=== PATIENT | male | born 1980 | race Caucasian/White ===

== ENCOUNTER 2017-03-21 19:23 | Emergency (ER) | payer OTHER ==
[~2017-03-21] VITALS: Ht 180.3 cm; Wt 65.0 kg
[2017-03-21 19:23] VITALS: BP 115/83
[2017-03-21] MEDS ORDERED: BENA25TA9 PO (19:42)
[2017-03-21] MEDS ORDERED: dayquil (19:42)
[2017-03-21] MEDS ORDERED: IBUP600T26 PO (21:19)
[2017-03-21] MEDS ORDERED: AMOX500C PO (21:19)
[2017-03-21] MEDS ORDERED: AMOXICILLIN 500 MG CAP PO ONE (21:30)
[2017-03-21] MEDS ORDERED: ACETAMINOPHEN TAB 650MG DOSE (2X325MG) PO ONE (21:30)
== END 2017-03-21 21:30 | disposition home or self-care (01) ==
LOC: M ED 20:55
DX: H66.90 Otitis media, unspecified, unspecified ear (principal)

== ENCOUNTER 2018-12-04 04:01 | Inpatient (IN) | payer OTHER ==
[~2018-12-04] VITALS: Ht 180.3 cm; Wt 59.6 kg
[~2018-12-04 04:01] MED LIST: AMOX500C PO; BENA25TA10 PO; IBUP-1022 PO; dayquil
[2018-12-04] MEDS ORDERED: TRAZ-160 PO (04:32)
[2018-12-04] MEDS ORDERED: SERT25TA88 PO (04:32)
[2018-12-04 04:42] LABS: HEMATOCRIT 45.2 % (42.0-52.0); HEMOGLOBIN 15.8 g/dl (13.5-17.5); MEAN CORPUSCULAR HEMOGLOBIN 30.2 pg (27.0-33.0); MEAN CORPUSCULAR VOLUME 86.4 fl (80.0-96.0); PLATELET COUNT, AUTOMATED 176 10^3/uL (150-450); RED BLOOD COUNT 5.23 10^6/uL (4.30-6.10); WHITE BLOOD COUNT 4.9 10^3/uL (4.0-10.0)
[2018-12-04 05:21] LABS: ACETAMINOPHEN LEVEL < 2.0 UG/ML (10.0-30.0); ALBUMIN 4.3 GM/DL (3.2-5.2); ALT/SGPT 26 U/L (12-78); AMPHETAMINES LEVEL URINE NEGATIVE (NEGATIVE); BARBITURATES URINE NEGATIVE (NEGATIVE); BENZODIAZEPINES URINE NEGATIVE (NEGATIVE); BILIRUBIN,DIRECT 0.2 MG/DL (0.0-0.2); BILIRUBIN,TOTAL 0.7 MG/DL (0.2-1.0); BLOOD UREA NITROGEN 11 MG/DL (7-18); CALCIUM LEVEL 8.6 MG/DL (8.5-10.1); CANNABINOIDS URINE NEGATIVE (NEGATIVE); CARBON DIOXIDE LEVEL 27 MEQ/L (21-32); CHLORIDE LEVEL 106 MEQ/L (98-107); COCAINE METABOLITE URINE NEGATIVE (NEGATIVE); CREATININE FOR GFR 0.95 MG/DL (0.70-1.30); ETHYL ALCOHOL (ETHANOL) < 0.003 % (0.000-0.010); GLOMERULAR FILTRATION RATE > 60.0 (>60); GLUCOSE, FASTING 135 MG/DL (70-100); METHADONE URINE NEGATIVE (NEGATIVE); OPIATES URINE NEGATIVE (NEGATIVE); PHENCYCLIDINE URINE NEGATIVE (NEGATIVE); POTASSIUM SERUM 3.4 MEQ/L (3.5-5.1); SALICYLATE LEVEL < 1.7 MG/DL (5.0-30.0); SODIUM LEVEL 142 MEQ/L (136-145); TOTAL PROTEIN 6.9 GM/DL (6.4-8.2)
[2018-12-04] MEDS ORDERED: NICOTINE 21MG/24HR 1 EA TRANSDERMAL TD ONE (06:30)
[2018-12-04] MEDS ORDERED: MOM 30ML SUSPENSION UDC PO PRN (14:30)
[2018-12-04] MEDS ORDERED: MAALOX 30 ML SUSP *UDC PO PRN (14:30)
[2018-12-04] MEDS ORDERED: ACETAMINOPHEN TAB 650MG DOSE (2X325MG) PO PRN (14:30)
[2018-12-04 16:32] VITALS: BP 120/86
[2018-12-05 06:26] VITALS: BP 107/64
--- NOTE | 2018-12-05 09:44 | HPEPDOC ---
[facility] Medical History & Physical Date of Admission Dec 04, 2018 History and Physical PCP: Chandni RICHMONDC ATTENDING: Dr. Rachna Can HPI: 38 yo M admitted to [facility] for unspecified depressive disorder, being medically examined today. No acute medical complaints today. Denies any fevers, chills, weakness, fatigue, PUGA, CP, SOB, cough, palpitations, abdominal pain, N/V/D or changes in bowel or bladder habits. PMHx: Anxiety Depression History of SI PSHX: PRK SOCHX: Resides in: [facility] Marital Status: Kids: 3 Employment: Active duty Tobacco use: Less than one pack per day ETOH: Denies Illicit Drugs: Patient states history of methamphetamine prior to , last used 12-13 years ago IV Drug Use: Denies Tattoos done unprofessionally: Denies FAMHX: Mother: Alive, well Father: Unknown Siblings: 2 brother, one sister Alive, one brother with history of bipolar disorder Children: Alive, well Unexpected deaths due to medical reasons: None. ROS: As noted in HPI, otherwise 11pt ROS of systems reviewed and unremarkable. PE: GEN: 38 yo M, appears stated age. Well-nourished, well developed. No acute distress. Alert and oriented x 3. Avoids eye contact, short responses. HEENT: Normocephalic, atraumatic. Pupils are equal, round, and reactive to light. Extraocular movements are intact. No nystagmus appreciated. Sclera are nonicteric. Conjunctiva without injection. Nose midline. Nasal turbinates without bogginess. EACs both patent BL. TMs both visualized and smith with good cone of light, no bulging or erythema. No facial asymmetry. Moist mucous membranes. Dentition fair. Pharynx pink and moist, no cobblestoning. Neck supple, trachea midline. No lymphadenopathy or thyromegaly appreciated. CHEST: Regular rate and rhythm, +S1, +S2 LUNGS: Clear to auscultation bilaterally. No wheezes, rales, or rhonchi. Breat mark appears symmetric and easy. Patient is speaking in full sentences. No accessory muscle use. ABD: Round, soft, non-tender, non-distended. +Bowel sounds throughout. No rebound or guarding. No costovertebral angle tenderness. EXT: Pulses 2+ bilaterally dorsalis pedis and radial. No lower extremity edema appreciated. SKIN: [place], dry, warm. Capillary refill <2sec. No rashes. NEURO: Alert and oriented x 3. Cranial nerves III-XII are intact. No focal deficits appreciated. EKG: Pending A&P: 38 yo M admitted to [facility] for unspecified depressive disorder 1. Psych. Plan per Psychiatry. Obtain baseline EKG to assure the safety of psychiatric medications as they can prolong the QT interval. 2. Nicotine dependence. Patch available. 3. Hypokalemia. Potassium noted to be 3.4 on admission. Oral intake has improved. Recheck BMP in AM. 4. Follow up with PCP on discharge. 5. History of Substance use. 6. Staff member Ayden present throughout exam. Vital Signs Vital Signs Date Time Temp Pulse Resp B/P (MAP) Pulse Ox O2 Delivery O2 Flow Rate FiO2 12/05/18 06:26 97.4 77 18 107/64 (78) 12/04/18 16:04 100 Room Air Laboratory Data Labs 24H Item Value Date Time White Blood Count 4.9 10^3/uL 12/04/18430 Red Blood Count 5.23 10^6/uL 12/04/18430 Hemoglobin 15.8 g/dl 12/04/18430 Hematocrit 45.2 % 12/04/18430 Mean Corpuscular Volume 86.4 fl 12/04/18430 Mean Corpuscular Hemoglobin 30.2 pg 12/04/18430 Mean Corpuscular Hemoglobin Concent 35.0 g/dl 12/04/18430 Red Cell Distribution Width 11.9 % 12/04/18430 Platelet Count 176 10^3/uL 12/04/18430 Nucleated Red Blood Cells % (auto) 0.0 % 12/04/18430 Sodium Level 142 MEQ/L 12/04/18430 Potassium Level 3.4 MEQ/L L 12/04/18430 Chloride Level 106 MEQ/L 12/04/18430 Carbon Dioxide Level 27 MEQ/L 12/04/18430 Anion Gap 9 MEQ/L 12/04/18430 Blood Urea Nitrogen 11 MG/DL 12/04/18430 Creatinine 0.95 MG/DL 12/04/18430 Glomerular Filtration Rate > 60.0 12/04/18430 Fasting Glucose 135 MG/DL H 12/04/18430 Calcium Level 8.6 MG/DL 12/04/18430 Total Bilirubin 0.7 MG/DL 12/04/18430 Direct Bilirubin 0.2 MG/DL 12/04/18430 Aspartate Amino Transf (AST/SGOT) 17 U/L 12/04/18430 Alanine Aminotransferase (ALT/SGPT) 26 U/L 12/04/18430 Alkaline Phosphatase 85 U/L 12/04/18430 Total Protein 6.9 GM/DL 12/04/18430 Albumin 4.3 GM/DL 12/04/18430 Albumin/Globulin Ratio 1.65 12/04/18430 Thyroid Stimulating Hormone (TSH) 2.070 uIU/ML 12/04/18430 Salicylates Level < 1.7 MG/DL L 12/04/18430 Urine Opiates Screen NEGATIVE 12/04/18430 Urine Methadone Screen NEGATIVE 12/04/18430 Acetaminophen Level < 2.0 UG/ML L 12/04/18430 Urine Barbiturates Screen NEGATIVE 12/04/18430 Urine Phencyclidine Screen NEGATIVE 12/04/18430 Urine Amphetamines Screen NEGATIVE 12/04/18430 Urine Benzodiazepines Screen NEGATIVE 12/04/18430 Urine Cocaine Metabolite Screen NEGATIVE 12/04/18430 Urine Cannabinoids Screen NEGATIVE 12/04/18430 Ethyl Alcohol Level < 0.003 % 12/04/18430 Home Medications Scheduled (Sertraline HCl) 25 Mg Tab, 25 MG PO DAILY Trazodone HCl (Trazodone HCl) 50 Mg Tab, 25 MG PO QHS Allergies Coded Allergies: No Known Allergies (Unverified , 03/21/17) Roseline Perez Dec 05, 2018 09:44
[2018-12-05] MEDS: NICOTINE 21MG/24HR 1 EA TRANSDERMAL TD SCH (10:22)
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
[2018-12-05] MEDS ORDERED: diphenhydrAMINE 25 MG CAP PO PRN (13:00)
[2018-12-05] MEDS ORDERED: SERTRALINE HCL 50 MG TAB PO ONE (13:00)
[2018-12-05] MEDS ORDERED: hydrOXYzine 25 MG TAB PO PRN (13:00)
[2018-12-05 18:00] VITALS: BP 113/65
[2018-12-05] MEDS: PRAZOSIN 1 MG CAP PO SCH (21:46)
[2018-12-06 06:09] VITALS: BP 82/56
[2018-12-06] MEDS: NICOTINE 21MG/24HR 1 EA TRANSDERMAL TD SCH (08:39)
[2018-12-06] MEDS: SERTRALINE HCL 50 MG TAB PO SCH (08:39)
[2018-12-06 09:10] LABS: BLOOD UREA NITROGEN 19 MG/DL (7-18); CALCIUM LEVEL 9.2 MG/DL (8.5-10.1); CARBON DIOXIDE LEVEL 32 MEQ/L (21-32); CHLORIDE LEVEL 105 MEQ/L (98-107); CREATININE FOR GFR 1.11 MG/DL (0.70-1.30); GLOMERULAR FILTRATION RATE > 60.0 (>60); GLUCOSE, FASTING 132 MG/DL (70-100); POTASSIUM SERUM 3.9 MEQ/L (3.5-5.1); SODIUM LEVEL 142 MEQ/L (136-145)
--- NOTE | 2018-12-06 14:14 | ECGEPIP ---
Stationary ECG Study [facility] Test Date: 2018-12-05 Pat Name: MARY DANG Department: Room: [place] [address] Gender: M Installment Loan Collector: DYLAN : 1980 Requested By: Roseline Perez Order Number: [id number] Reading MD: Merlin Merrill Measurements Intervals [place] Rate: 53 P: 77 DC: 142 QRS: 97 QRSD: 106 T: 77 QT: 428 QTc: 405 Interpretive Statements SINUS BRADYCARDIA Rightward axis. No prior ECG available for comparison at the time of interpretation. Electronically Signed On 12-06-2018 14:14:29 EST by Merlin Merrill
--- NOTE | 2018-12-06 17:33 | MHIPNPDOC ---
[facility] Progress Note Progress Note DATE OF SERVICE: 12/06/18 HISTORY: Chief Complaint "I'm having thoughts of suicide with a plan to shoot myself in the head." History of Present Illness HISTORY OF THE PRESENT ILLNESS: Patient is a 38 -year-old , AD, male, with no previous psych history who came to ED on his own due to worsening anxiety, depression, SI with plan to shoot himself for the past few weeks. Pt's Spike contacted from the ED and stated pt has been going thru multiple psychosocial stressors includin/2 pay going to child support, current having 4 daughters and unable to leave state due to custody agreement regarding 1, pt going thru reclassification regarding security clearance for a new job with possible station in another state. Pt has been in the 11yrs doing the same job and has a history of 3 combat deployments. He is followed by [facility] stated recently and started taking zoloft 25mg 4days ago. Pt appeared anxious and depressed in the ED. Endorsed PTSD symptoms of hypervigilance, paranoia, insomnia, nightmares, irritability. VITAL SIGNS: See below. NEW TEST RESULTS: See below CURRENT MEDICATIONS: See below. MENTAL STATUS EXAMINATION: General Appearance: well groomed Build: average Demeanor: withdrawn, calm Eye Contact: avoidant Activity: calm, cooperative Behavior: cooperative, restless, withdrawn Speech: clear, normal volume, reg/rate,rhythm,volume, non-spontaneous Mood: depressed, anxious Mood anxious Affect: constricted, flat, congruent, anxious Thought Process: logical/linear, depressed, intact Thought Content (Delusions): none reported, denies SI, HI, AVH Thought Content (Other): guarded, appropriate, other (hypervigilant) Thought Content (Aggressive): none reported Perception (Hallucinations): none reported Perception (Other): none reported Cognition (Impairment of): none reported Cognition(Intelligence Est.): average Oriented: Awake, Alert, Oriented times three Insight: fair Judgment: Fair Psychosis: Denies Diagnoses PTSD depression unspecified ASSESSMENT: The patient is very depressed, has very poor eye contact, his speech is not spontaneous, not fluent, the volume is low, speaks slowly. Admits to have SI, he says he has been considering leaving the [employer], he has been in it for 11 years and he thinks he can do something else that he would enjoy doing. He denies medication side effects. MANAGEMENT PLAN: Diphenhydramine HCl (Benadryl) 25 mg QHSP PRN PO INSOMNIA Hydroxyzine HCl (Atarax) 25 mg Q6HP PRN PO ANXIETY Nicotine (Nicoderm Cq 21mg) 1 patch DAILY TD Prazosin HCl (Minipress) 1 mg QHS PO Sertraline HCl (Zoloft) 50 mg DAILY PO TIME SPENT: 20 minutes. Vital Signs Vital Signs Date Time Temp Pulse Resp B/P (MAP) Pulse Ox O2 Delivery O2 Flow Rate FiO2 12/06/18 06:09 97.2 61 18 82/56 (65) 12/04/18 16:04 100 Room Air Laboratory Data 24H Labs Laboratory Tests 2 12/06/18 08:07: Anion Gap 5L, Glomerular Filtration Rate > 60.0, Blood Urea Nitrogen 19#H, Creatinine 1.11, Sodium Level 142, Potassium Level 3.9, Chloride Level 105, Carbon Dioxide Level 32, Calcium Level 9.2 CBC/BMP Laboratory Tests 12/06/18 08:07 Calcium Level 9.2 Current Medications Current Medications Acetaminophen (Tylenol Tab) 650 mg Q6HP PRN PO HEADACHE or DISCOMFORT; Start 12/04/18 at 14:30 Al Hydrox/Mg Hydrox/Simethicone (Mylanta) 30 ml Q4HP PRN PO HEARTBURN/INDIGESTION; Start 12/04/18 at 14:30 Diphenhydramine HCl (Benadryl) 25 mg QHSP PRN PO INSOMNIA Last administered on 12/05/18at 21:46; Start 12/05/18 at 13:00 Home Med (Med Rec Complete!) ASDIRECTED XX ; Start 12/04/18 at 07:45; Stop 12/04/18 at 07:45; Status DC Hydroxyzine HCl (Atarax) 25 mg Q6HP PRN PO ANXIETY Last administered on 12/06/18at 12:15; Start 12/05/18 at 13:00 Magnesium Hydroxide (Milk Of Magnesia) 30 ml DAILYPRN PRN PO CONSTIPATION; Start 12/04/18 at 14:30 Nicotine (Nicoderm Cq 21mg) 1 patch DAILY TD Last administered on 12/06/18at 08:39; Start 12/05/18 at 09:00 Prazosin HCl (Minipress) 1 mg QHS PO Last administered on 12/05/18at 21:46; Start 12/05/18 at 21:00 Sertraline HCl (Zoloft) 50 mg DAILY PO Last administered on 12/06/18at 08:39; Start 12/06/18 at 09:00 Allergies Coded Allergies: No Known Allergies (Unverified , 03/21/17) DYANA PARK MD Dec 06, 2018 14:22
[2018-12-06 18:00] VITALS: BP 118/77
[2018-12-06] MEDS: PRAZOSIN 1 MG CAP PO SCH (20:42)
[2018-12-07 06:00] VITALS: BP 101/63
[2018-12-07] MEDS: NICOTINE 21MG/24HR 1 EA TRANSDERMAL TD SCH (08:00)
[2018-12-07] MEDS: SERTRALINE HCL 50 MG TAB PO SCH (08:00)
--- NOTE | 2018-12-07 16:39 | MHIPNPDOC ---
[facility] Progress Note Progress Note DATE OF SERVICE: 12/07/18 HISTORY: Chief Complaint "I'm having thoughts of suicide with a plan to shoot myself in the head." History of Present Illness HISTORY OF THE PRESENT ILLNESS: Patient is a 38 -year-old , AD, male, with no previous psych history who came to ED on his own due to worsening anxiety, depression, SI with plan to shoot himself for the past few weeks. Pt's Spike contacted from the ED and stated pt has been going thru multiple psychosocial stressors includin/2 pay going to child support, current having 4 daughters and unable to leave state due to custody agreement regarding 1, pt going thru reclassification regarding security clearance for a new job with possible station in another state. Pt has been in the 11yrs doing the same job and has a history of 3 combat deployments. He is followed by [facility] stated recently and started taking zoloft 25mg 4days ago. Pt appeared anxious and depressed in the ED. Endorsed PTSD symptoms of hypervigilance, paranoia, insomnia, nightmares, irritability. VITAL SIGNS: See below. NEW TEST RESULTS: See below CURRENT MEDICATIONS: See below. MENTAL STATUS EXAMINATION: General Appearance: well groomed Build: average Demeanor: withdrawn, calm Eye Contact: avoidant Activity: calm, cooperative Behavior: cooperative, restless, withdrawn Speech: clear, normal volume, reg/rate,rhythm,volume, non-spontaneous Mood: depressed, anxious Mood depressed Affect: constricted, flat, congruent, anxious Thought Process: logical/linear, depressed, intact Thought Content (Delusions): none reported, denies SI, HI, AVH Thought Content (Other): guarded, appropriate, other (hypervigilant) Thought Content (Aggressive): none reported Perception (Hallucinations): none reported Perception (Other): none reported Cognition (Impairment of): none reported Cognition(Intelligence Est.): average Oriented: Awake, Alert, Oriented times three Insight: fair Judgment: Fair Psychosis: Denies Diagnoses PTSD Major Depressive Disorder ASSESSMENT: He says he had nightmares last night, so, he is wondering if I could change his medications. TW tells him that I will increae prazosin to 3 mgs PO QHS and Zoloft to 75 mgs PO daily. He says that Benadryl is not working and he would prefer to take Trazodone but I explain we could try other alternatives be cause he says he doesn't like Trazodone since it makes "me feel like a brick next morning". TW discuss with him about Remeron and he agrees to start that medication. Will start him on Remeron 30 mgs PO QHS MANAGEMENT PLAN: Remeron 30 mgs PO QHS Hydroxyzine HCl (Atarax) 25 mg Q6HP PRN PO ANXIETY Nicotine (Nicoderm Cq 21mg) 1 patch DAILY TD Prazosin HCl (Minipress) 3 mg QHS PO Sertraline HCl (Zoloft) 75 mg DAILY PO TIME SPENT: 20 minutes. Vital Signs Vital Signs Date Time Temp Pulse Resp B/P (MAP) Pulse Ox O2 Delivery O2 Flow Rate FiO2 12/07/18 06:00 97.8 83 14 101/63 (76) 12/04/18 16:04 100 Room Air Current Medications Current Medications Acetaminophen (Tylenol Tab) 650 mg Q6HP PRN PO HEADACHE or DISCOMFORT; Start 12/04/18 at 14:30 Al Hydrox/Mg Hydrox/Simethicone (Mylanta) 30 ml Q4HP PRN PO HEARTBURN/INDIGESTION; Start 12/04/18 at 14:30 Diphenhydramine HCl (Benadryl) 25 mg QHSP PRN PO INSOMNIA Last administered on 12/05/18at 21:46; Start 12/05/18 at 13:00 Home Med (Med Rec Complete!) ASDIRECTED XX ; Start 12/04/18 at 07:45; Stop 12/04/18 at 07:45; Status DC Hydroxyzine HCl (Atarax) 25 mg Q6HP PRN PO ANXIETY Last administered on 12/06/18at 12:15; Start 12/05/18 at 13:00 Magnesium Hydroxide (Milk Of Magnesia) 30 ml DAILYPRN PRN PO CONSTIPATION; Start 12/04/18 at 14:30 Nicotine (Nicoderm Cq 21mg) 1 patch DAILY TD Last administered on 12/07/18at 08:00; Start 12/05/18 at 09:00 Prazosin HCl (Minipress) 1 mg QHS PO Last administered on 12/06/18at 20:42; Start 12/05/18 at 21:00 Sertraline HCl (Zoloft) 50 mg DAILY PO Last administered on 12/07/18at 08:00; Start 12/06/18 at 09:00 Allergies Coded Allergies: No Known Allergies (Unverified , 03/21/17) DYANA PARK MD Dec 07, 2018 16:39
[2018-12-07 18:09] VITALS: BP 127/75
[2018-12-07] MEDS: PRAZOSIN 1 MG CAP PO SCH (21:23)
[2018-12-08 06:30] VITALS: BP 115/70
[2018-12-08] MEDS ORDERED: SERTRALINE HCL 25 MG TABLET PO SCH (09:00)
[2018-12-08] MEDS: NICOTINE 21MG/24HR 1 EA TRANSDERMAL TD SCH (10:23)
--- NOTE | 2018-12-08 14:14 | MHIPNPDOC ---
[facility] Progress Note Progress Note DATE OF SERVICE: 12/08/18 HISTORY: Chief Complaint "I'm having thoughts of suicide with a plan to shoot myself in the head." History of Present Illness HISTORY OF THE PRESENT ILLNESS: Patient is a 38 -year-old , AD, male, with no previous psych history who came to ED on his own due to worsening anxiety, depression, SI with plan to shoot himself for the past few weeks. Pt's Spike contacted from the ED and stated pt has been going thru multiple psychosocial stressors includin/2 pay going to child support, current having 4 daughters and unable to leave state due to custody agreement regarding 1, pt going thru reclassification regarding security clearance for a new job with possible station in another state. Pt has been in the 11yrs doing the same job and has a history of 3 combat deployments. He is followed by [facility] stated recently and started taking zoloft 25mg 4days ago. Pt appeared anxious and depressed in the ED. Endorsed PTSD symptoms of hypervigilance, paranoia, insomnia, nightmares, irritability. VITAL SIGNS: See below. NEW TEST RESULTS: See below CURRENT MEDICATIONS: See below. MENTAL STATUS EXAMINATION: General Appearance: well groomed, laying in bed, wearing a turtle neck sweater, looking sad, with low energy levels Build: average Demeanor: withdrawn, calm, sad Eye Contact: avoidant Activity: calm,he has psychomotor retardation Behavior: cooperative, indifferent, withdrawn, apathetic Speech: clear, low volume, slow, non-spontaneous, not fluent Mood: depressed, anxious Mood "I feel blah" Affect: constricted, flat, congruent, anxious Thought Process: logical/linear, depressed, intact Thought Content (Delusions): none reported, denies SI, HI, AVH Thought Content (Other): guarded, appropriate, other (hypervigilant) Thought Content (Aggressive): none reported Perception (Hallucinations): none reported Perception (Other): none reported Cognition (Impairment of): none reported Cognition(Intelligence Est.): average Oriented: Awake, Alert, Oriented times three Insight: fair Judgment: Fair Psychosis: Denies Diagnoses PTSD Major Depressive Disorder ASSESSMENT: Patient could not sleep well last night, this rewriter wrote about the changes in his medications in his progress note but forgot to put the order in. He received Benadryl instead. Sertraline has been increased to 100 mgs, he will receive 45 mgs of Remeron at night and will be started on Abilify 2.5 PO BID MANAGEMENT PLAN: Remeron 45 mgs PO QHS Hydroxyzine HCl (Atarax) 25 mg Q6HP PRN PO ANXIETY Nicotine (Nicoderm Cq 21mg) 1 patch DAILY TD Prazosin HCl (Minipress) 3 mg QHS PO Sertraline HCl (Zoloft) 100 mg DAILY PO Abilify 2.5 mgs PO BID TIME SPENT: 20 minutes. Vital Signs Vital Signs Date Time Temp Pulse Resp B/P (MAP) Pulse Ox O2 Delivery O2 Flow Rate FiO2 12/08/18 06:30 98.6 95 16 115/70 (85) 12/04/18 16:04 100 Room Air Current Medications Current Medications Acetaminophen (Tylenol Tab) 650 mg Q6HP PRN PO HEADACHE or DISCOMFORT; Start 12/04/18 at 14:30 Al Hydrox/Mg Hydrox/Simethicone (Mylanta) 30 ml Q4HP PRN PO HEARTBURN/INDIGESTION; Start 12/04/18 at 14:30 Diphenhydramine HCl (Benadryl) 25 mg QHSP PRN PO INSOMNIA Last administered on 12/05/18at 21:46; Start 12/05/18 at 13:00 Home Med (Med Rec Complete!) ASDIRECTED XX ; Start 12/04/18 at 07:45; Stop 12/04/18 at 07:45; Status DC Hydroxyzine HCl (Atarax) 25 mg Q6HP PRN PO ANXIETY Last administered on 12/06/18at 12:15; Start 12/05/18 at 13:00 Magnesium Hydroxide (Milk Of Magnesia) 30 ml DAILYPRN PRN PO CONSTIPATION; Start 12/04/18 at 14:30 Nicotine (Nicoderm Cq 21mg) 1 patch DAILY TD Last administered on 12/08/18at 10:23; Start 12/05/18 at 09:00 Prazosin HCl (Minipress) 1 mg QHS PO Last administered on 12/06/18at 20:42; Start 12/05/18 at 21:00; Stop 12/07/18 at 16:38; Status DC Prazosin HCl (Minipress) 3 mg QHS PO Last administered on 12/07/18at 21:23; Start 12/07/18 at 21:00 Sertraline HCl (Zoloft) 50 mg DAILY PO Last administered on 12/07/18at 08:00; Start 12/06/18 at 09:00; Stop 12/07/18 at 17:00; Status DC Sertraline HCl (Zoloft) 75 mg DAILY PO Last administered on 12/08/18at 10:23; Start 12/08/18 at 09:00 Allergies Coded Allergies: No Known Allergies (Unverified , 03/21/17) DYANA PARK MD Dec 08, 2018 10:53
[2018-12-08 18:07] VITALS: BP 138/88
[2018-12-08 18:09] VITALS: BP 113/77
[2018-12-08] MEDS: MIRTAZAPINE 15 MG TAB PO SCH (22:19)
[2018-12-08] MEDS: PRAZOSIN 1 MG CAP PO SCH (22:21)
[2018-12-09 06:00] VITALS: BP 112/67
[2018-12-09] MEDS ORDERED: SERTRALINE 100 MG TAB PO SCH (09:00)
[2018-12-09] MEDS: NICOTINE 21MG/24HR 1 EA TRANSDERMAL TD SCH (09:02)
--- NOTE | 2018-12-09 16:10 | MHIPNPDOC ---
[facility] Progress Note Progress Note DATE OF SERVICE: 12/09/18 HISTORY: Chief Complaint "I'm having thoughts of suicide with a plan to shoot myself in the head." History of Present Illness HISTORY OF THE PRESENT ILLNESS: Patient is a 38 -year-old , AD, male, with no previous psych history who came to ED on his own due to worsening anxiety, depression, SI with plan to shoot himself for the past few weeks. Pt's Spike contacted from the ED and stated pt has been going thru multiple psychosocial stressors includin/2 pay going to child support, current having 4 daughters and unable to leave state due to custody agreement regarding 1, pt going thru reclassification regarding security clearance for a new job with possible station in another state. Pt has been in the 11yrs doing the same job and has a history of 3 combat deployments. He is followed by [facility] stated recently and started taking zoloft 25mg 4days ago. Pt appeared anxious and depressed in the ED. Endorsed PTSD symptoms of hypervigilance, paranoia, insomnia, nightmares, irritability. VITAL SIGNS: See below. NEW TEST RESULTS: See below CURRENT MEDICATIONS: See below. MENTAL STATUS EXAMINATION: General Appearance: well groomed, laying in bed, wearing a turtle neck sweater, looking sad, with low energy levels Build: average Demeanor: withdrawn, calm, sad Eye Contact: avoidant Activity: calm,he has psychomotor retardation Behavior: cooperative, indifferent, withdrawn, apathetic Speech: clear, low volume, slow, non-spontaneous, not fluent Mood: depressed, anxious Mood "I'm still depressed" Affect: constricted, flat, congruent, anxious Thought Process: logical/linear, depressed, intact Thought Content (Delusions): none reported, denies SI, HI, AVH Thought Content (Other): guarded, appropriate, other (hypervigilant) Thought Content (Aggressive): none reported Perception (Hallucinations): none reported Perception (Other): none reported Cognition (Impairment of): none reported Cognition(Intelligence Est.): average Oriented: Awake, Alert, Oriented times three Insight: fair Judgment: Fair Psychosis: Denies Diagnoses PTSD Major Depressive Disorder ASSESSMENT: His MSE is not very different from yesterday. Patient says he felt dizzy last night when he woke up and went to the bathroom. I explained that is better for him to stand up slowly to avoid this from happening again, but I will discontinue the morning dose of Abilify. he has agreed to go for termination clerk treatment. MANAGEMENT PLAN: Remeron 45 mgs PO QHS Hydroxyzine HCl (Atarax) 25 mg Q6HP PRN PO ANXIETY Nicotine (Nicoderm Cq 21mg) 1 patch DAILY TD Prazosin HCl (Minipress) 3 mg QHS PO Sertraline HCl (Zoloft) 100 mg DAILY PO Abilify 2.5 mgs PO QAM TIME SPENT: 20 minutes. Vital Signs Vital Signs Date Time Temp Pulse Resp B/P (MAP) Pulse Ox O2 Delivery O2 Flow Rate FiO2 12/09/18 06:00 98.6 70 16 112/67 (82) 100 12/04/18 16:04 Room Air Current Medications Current Medications Acetaminophen (Tylenol Tab) 650 mg Q6HP PRN PO HEADACHE or DISCOMFORT; Start 12/04/18 at 14:30 Al Hydrox/Mg Hydrox/Simethicone (Mylanta) 30 ml Q4HP PRN PO HEART BURN/INDIGESTION; Start 12/04/18 at 14:30 Aripiprazole (AbiLIFY) 2.5 mg BID PO Last administered on 12/09/18at 09:03; Start 12/08/18 at 21:00 Diphenhydramine HCl (Benadryl) 25 mg QHSP PRN PO INSOMNIA Last administered on 12/05/18at 21:46; Start 12/05/18 at 13:00 Home Med (Med Rec Complete!) ASDIRECTED XX ; Start 12/04/18 at 07:45; Stop 12/04/18 at 07:45; Status DC Hydroxyzine HCl (Atarax) 25 mg Q6HP PRN PO ANXIETY Last administered on 12/06/18at 12:15; Start 12/05/18 at 13:00 Magnesium Hydroxide (Milk Of Magnesia) 30 ml DAILYPRN PRN PO CONSTIPATION; Start 12/04/18 at 14:30 Mirtazapine (Remeron) 45 mg QHS PO Last administered on 12/08/18at 22:19; Start 12/08/18 at 21:00 Nicotine (Nicoderm Cq 21mg) 1 patch DAILY TD Last administered on 12/09/18 09:02; Start 12/05/18 at 09:00 Prazosin HCl (Minipress) 1 mg QHS PO Last administered on 12/06/18at 20:42; Start 12/05/18 at 21:00; Stop 12/07/18 at 16:38; Status DC Prazosin HCl (Minipress) 3 mg QHS PO Last administered on 12/08/18at 22:21; Start 12/07/18 at 21:00 Sertraline HCl (Zoloft) 50 mg DAILY PO Last administered on 12/07/18at 08:00; Start 12/06/18 at 09:00; Stop 12/07/18 at 17:00; Status DC Sertraline HCl (Zoloft) 75 mg DAILY PO Last administered on 12/08/18at 10:23; Start 12/08/18 at 09:00; Stop 12/08/18 at 14:21; Status DC Sertraline HCl (Zoloft) 100 mg DAILY PO Last administered on 12/09/18 09:02; Start 12/09/18 at 09:00 Allergies Coded Allergies: No Known Allergies (Unverified , 03/21/17) DYANA PARK MD Dec 09, 2018 12:52
[2018-12-09 18:00] VITALS: BP 119/75
[2018-12-09] MEDS: MIRTAZAPINE 15 MG TAB PO SCH (21:37)
[2018-12-09] MEDS: PRAZOSIN 1 MG CAP PO SCH (21:38)
[2018-12-10 06:38] VITALS: BP 130/68
[2018-12-10] MEDS: NICOTINE 21MG/24HR 1 EA TRANSDERMAL TD SCH (08:54)
[2018-12-10] MEDS: SERTRALINE HCL 50 MG TAB PO SCH (08:55)
[2018-12-10 18:14] VITALS: BP 123/72
--- NOTE | 2018-12-10 18:18 | MHIPNPDOC ---
[facility] Progress Note Progress Note DATE OF SERVICE: 12/10/18 HISTORY: Chief Complaint "I'm having thoughts of suicide with a plan to shoot myself in the head." History of Present Illness HISTORY OF THE PRESENT ILLNESS: Patient is a 38 -year-old , AD, male, with no previous psych history who came to ED on his own due to worsening anxiety, depression, SI with plan to shoot himself for the past few weeks. Pt's Spike contacted from the ED and stated pt has been going thru multiple psychosocial stressors includin/2 pay going to child support, current having 4 daughters and unable to leave state due to custody agreement regarding 1, pt going thru reclassification regarding security clearance for a new job with possible station in another state. Pt has been in the 11yrs doing the same job and has a history of 3 combat deployments. He is followed by [facility] stated recently and started taking zoloft 25mg 4days ago. Pt appeared anxious and depressed in the ED. Endorsed PTSD symptoms of hypervigilance, paranoia, insomnia, nightmares, irritability. VITAL SIGNS: See below. NEW TEST RESULTS: See below CURRENT MEDICATIONS: See below. MENTAL STATUS EXAMINATION: General Appearance: well groomed, laying in bed, wearing a turtle neck sweater, looking sad, with low energy levels Build: average Demeanor: withdrawn, calm, sad Eye Contact: avoidant Activity: calm,he has psychomotor retardation Behavior: cooperative, indifferent, withdrawn, apathetic Speech: clear, low volume, slow, non-spontaneous, not fluent Mood: depressed, anxious Mood "I slept better, i still feel depressed, but I'm improving" Affect: constricted, flat, congruent, anxious Thought Process: logical/linear, depressed, intact Thought Content (Delusions): none reported, denies SI, HI, AVH Thought Content (Other): guarded, appropriate, other (hypervigilant) Thought Content (Aggressive): none reported Perception (Hallucinations): none reported Perception (Other): none reported Cognition (Impairment of): none reported Cognition(Intelligence Est.): average Oriented: Awake, Alert, Oriented times three Insight: fair Judgment: Fair Psychosis: Denies Diagnoses PTSD Major Depressive Disorder ASSESSMENT: He reports sleeping well. His appetite is slowly improving. He i still very depressed, his affect continues to be very flat but he denies SI. Ho wever he is at extremely high risk for suicide. We talked about the media strategist treatment and he says he already spoke with his exercise planner about it, he has some information about the place. he agrees to it. MANAGEMENT PLAN: Remeron 45 mgs PO QHS Hydroxyzine HCl (Atarax) 25 mg Q6HP PRN PO ANXIETY Nicotine (Nicoderm Cq 21mg) 1 patch DAILY TD Prazosin HCl (Minipress) 3 mg QHS PO Sertraline HCl (Zoloft) 150 mg DAILY PO Abilify 2.5 mgs PO QAM TIME SPENT: 20 minutes. Vital Signs Vital Signs Date Time Temp Pulse Resp B/P (MAP) Pulse Ox O2 Delivery O2 Flow Rate FiO2 12/10/18 06:38 96.3 62 14 130/68 (88) 12/09/18 06:00 100 12/04/18 16:04 Room Air Current Medications Current Medications Acetaminophen (Tylenol Tab) 650 mg Q6HP PRN PO HEADACHE or DISCOMFORT; Start 12/04/18 at 14:30 Al Hydrox/Mg Hydrox/Simethicone (Mylanta) 30 ml Q4HP PRN PO HEARTBURN/INDIGESTION; Start 12/04/18 at 14:30 Aripiprazole (AbiLIFY) 2.5 mg BID PO Last administered on 12/09/18at 09:03; Start 12/08/18 at 21:00; Stop 12/09/18 at 16:01; Status DC Aripiprazole (AbiLIFY) 2.5 mg QHS PO Last administered on 12/09/18at 21:37; Start 12/09/18 at 21:00 Diphenhydramine HCl (Benadryl) 25 mg QHSP PRN PO INSOMNIA Last administered on 12/05/18at 21:46; Start 12/05/18 at 13:00 Home Med (Med Rec Complete!) ASDIRECTED XX ; Start 12/04/18 at 07:45; Stop 12/04/18 at 07:45; Status DC Hydroxyzine HCl (Atarax) 25 mg Q6HP PRN PO ANXIETY Last administered on 12/06/18at 12:15; Start 12/05/18 at 13:00 Magnesium Hydroxide (Milk Of Magnesia) 30 ml DAILYPRN PRN PO CONSTIPATION; Start 12/04/18 at 14:30 Mirtazapine (Remeron) 45 mg QHS PO Last administered on 12/09/18 21:37; Start 12/08/18 at 21:00 Nicotine (Nicoderm Cq 21mg) 1 patch DAILY TD Last administered on 12/10/18 08:54; Start 12/05/18 at 09:00 Prazosin HCl (Minipress) 1 mg QHS PO Last administered on 12/06/18 20:42; Start 12/05/18 at 21:00; Stop 12/07/18 at 16:38; Status DC Prazosin HCl (Minipress) 3 mg QHS PO Last administered on 12/09/18 21:38; Start 12/07/18 at 21:00 Sertraline HCl (Zoloft) 50 mg DAILY PO Last administered on 12/07/18 08:00; Start 12/06/18 at 09:00; Stop 12/07/18 at 17:00; Status DC Sertraline HCl (Zoloft) 75 mg DAILY PO Last administered on 12/08/18 10:23; Start 12/08/18 at 09:00; Stop 12/08/18 at 14:21; Status DC Sertraline HCl (Zoloft) 100 mg DAILY PO Last administered on 12/09/18 09:02; Start 12/09/18 at 09:00; Stop 12/09/18 at 16:10; Status DC Sertraline HCl (Zoloft) 150 mg DAILY PO Last administered on 12/10/18 08:55; Start 12/10/18 at 09:00 Allergies Coded Allergies: No Known Allergies (Unverified , 03/21/17) DYANA PARK MD Dec 10, 2018 18:18
[2018-12-10] MEDS: MIRTAZAPINE 15 MG TAB PO SCH (21:34)
[2018-12-10] MEDS: PRAZOSIN 1 MG CAP PO SCH (21:35)
[2018-12-11 06:18] VITALS: BP 140/70
[2018-12-11] MEDS: NICOTINE 21MG/24HR 1 EA TRANSDERMAL TD SCH (08:42)
[2018-12-11] MEDS: SERTRALINE HCL 50 MG TAB PO SCH (08:42)
[2018-12-11] MEDS ORDERED: MIRT15TA3 PO (15:48)
[2018-12-11] MEDS ORDERED: HYDR-3363 PO (15:48)
[2018-12-11] MEDS ORDERED: ARIP5TA PO (15:48)
[2018-12-11] MEDS ORDERED: NICO21PAT TD (15:48)
[2018-12-11] MEDS ORDERED: MINI1CAP PO (15:48)
[2018-12-11] MEDS ORDERED: SERT50TA PO (15:48)
[2018-12-11 18:23] VITALS: BP 134/87
--- NOTE | 2018-12-11 20:46 | MHIPNPDOC ---
[facility] Progress Note Progress Note DATE OF SERVICE: 12/11/18 HISTORY: Chief Complaint "I'm having thoughts of suicide with a plan to shoot myself in the head." History of Present Illness HISTORY OF THE PRESENT ILLNESS: Patient is a 38 -year-old , AD, male, with no previous psych history who came to ED on his own due to worsening anxiety, depression, SI with plan to shoot himself for the past few weeks. Pt's Jennifer contacted from the ED and stated pt has been going thru multiple psychosocial stressors includin/2 pay going to child support, current having 4 daughters and unable to leave state due to custody agreement regarding 1, pt going thru reclassification regarding security clearance for a new job with possible station in another state. Pt has been in the 11yrs doing the same job and has a history of 3 combat deployments. He is followed by [facility] stated recently and started taking zoloft 25mg 4days ago. Pt appeared anxious and depressed in the ED. Endorsed PTSD symptoms of hypervigilance, paranoia, insomnia, nightmares, irritability. VITAL SIGNS: See below. NEW TEST RESULTS: See below CURRENT MEDICATIONS: See below. MENTAL STATUS EXAMINATION: General Appearance: well groomed, getting ready to leave the Unit ( he is leaving on a pass today, he has to pack before going to [place] in [place] tomorrow) Build: average Demeanor: withdrawn, calm, sad Eye Contact: avoidant Activity: calm,he has psychomotor retardation Behavior: cooperative, indifferent, withdrawn, apathetic Speech: clear, low volume, slow, non-spontaneous, not fluent Mood: depressed, anxious Mood "I don't have suicidal thoughts, I feel a little bit better" Affect: constricted, flat, congruent, anxious Thought Process: logical/linear, depressed, intact Thought Content (Delusions): none reported, denies SI, HI, AVH Thought Content (Other): guarded, appropriate Thought Content (Aggressive): none reported Perception (Hallucinations): none reported Perception (Other): none reported Cognition (Impairment of): none reported Cognition(Intelligence Est.): average Oriented: Awake, Alert, Oriented times three Insight: fair Judgment: Fair Psychosis: Denies Diagnoses PTSD Major Depressive Disorder ASSESSMENT: Patient is going to [place] tomorrow at 6:30 am. He left on a pass today, he was escorted by an [employer] fellow (JENNIFER). He went home, packed and is supposed to come back to [facility]. He is being picked up tomorrow at 630 am. He seems to be doing a little bit better, he is hopeful that his penitentiary hospitalization in [place] will help him overcome his depression. MANAGEMENT PLAN: Remeron 45 mgs PO QHS Hydroxyzine HCl (Atarax) 25 mg Q6HP PRN PO ANXIETY Nicotine (Nicoderm Cq 21mg) 1 patch DAILY TD Prazosin HCl (Minipress) 3 mg QHS PO Sertraline HCl (Zoloft) 150 mg DAILY PO Abilify 2.5 mgs PO QAM TIME SPENT: 20 minutes. Vital Signs Vital Signs Date Time Temp Pulse Resp B/P (MAP) Pulse Ox O2 Delivery O2 Flow Rate FiO2 12/11/18 06:18 98.0 74 18 140/70 (93) 12/09/18 06:00 100 Current Medications Current Medications Acetaminophen (Tylenol Tab) 650 mg Q6HP PRN PO HEADACHE or DISCOMFORT; Start 12/04/18 at 14:30 Al Hydrox/Mg Hydrox/Simethicone (Mylanta) 30 ml Q4HP PRN PO HEARTBURN/INDIGESTION; Start 12/04/18 at 14:30 Aripiprazole (AbiLIFY) 2.5 mg BID PO Last administered on 12/09/18at 09:03; Start 12/08/18 at 21:00; Stop 12/09/18 at 16:01; Status DC Aripiprazole (AbiLIFY) 2.5 mg QHS PO Last administered on 12/10/18at 21:34; Start 12/09/18 at 21:00 Diphenhydramine HCl (Benadryl) 25 mg QHSP PRN PO INSOMNIA Last administered on 12/05/18at 21:46; Start 12/05/18 at 13:00 Home Med (Med Rec Complete!) ASDIRECTED XX ; Start 12/04/18 at 07:45; Stop 12/04/18 at 07:45; Status DC Hydroxyzine HCl (Atarax) 25 mg Q6HP PRN PO ANXIETY Last administered on 12/06/18at 12:15; Start 12/05/18 at 13:00 Magnesium Hydroxide (Milk Of Magnesia) 30 ml DAILYPRN PRN PO CONSTIPATION; Start 12/04/18 at 14:30 Mirtazapine (Remeron) 45 mg QHS PO Last administered on 12/10/18 21:34; Start 12/08/18 at 21:00 Nicotine (Nicoderm Cq 21mg) 1 patch DAILY TD Last administered on 12/11/18 08:42; Start 12/05/18 at 09:00 Prazosin HCl (Minipress) 1 mg QHS PO Last administered on 12/06/18 20:42; Start 12/05/18 at 21:00; Stop 12/07/18 at 16:38; Status DC Prazosin HCl (Minipress) 3 mg QHS PO Last administered on 12/10/18 21:35; Start 12/07/18 at 21:00 Sertraline HCl (Zoloft) 50 mg DAILY PO Last administered on 12/07/18 08:00; Start 12/06/18 at 09:00; Stop 12/07/18 at 17:00; Status DC Sertraline HCl (Zoloft) 75 mg DAILY PO Last administered on 12/08/18 10:23; Start 12/08/18 at 09:00; Stop 12/08/18 at 14:21; Status DC Sertraline HCl (Zoloft) 100 mg DAILY PO Last administered on 12/09/18 09:02; Start 12/09/18 at 09:00; Stop 12/09/18 at 16:10; Status DC Sertraline HCl (Zoloft) 150 mg DAILY PO Last administered on 12/11/18 08:42; Start 12/10/18 at 09:00 Allergies Coded Allergies: No Known Allergies (Unverified , 03/21/17) DYANA PARK MD Dec 11, 2018 17:35
[2018-12-11 22:23] VITALS: BP 128/76
[2018-12-11] MEDS: MIRTAZAPINE 15 MG TAB PO SCH (22:23)
[2018-12-11] MEDS: PRAZOSIN 1 MG CAP PO SCH (22:23)
[2018-12-12] MEDS: SERTRALINE HCL 50 MG TAB PO SCH (05:59)
--- NOTE | 2018-12-16 21:19 | MHDSPDOC ---
[facility] Discharge Summary Discharge Summary DATE OF ADMISSION: Dec 04, 2018 at 14:27 DATE OF DISCHARGE: Dec 12, 2018 at 06:21 DISCHARGE DIAGNOSES: PTSD Major Depressive Disorder REASON FOR ADMISSION: Chief Complaint "I'm having thoughts of suicide with a plan to shoot myself in the head." History of Present Illness HISTORY OF THE PRESENT ILLNESS: Patient is a 38 -year-old , AD, male, with no previous psych history who came to ED on his own due to worsening anxiety, depression, SI with plan to shoot himself for the past few weeks. Pt's Spike contacted from the ED and stated pt has been going thru multiple psychosocial stressors includin/2 pay going to child support, current having 4 daughters and unable to leave state due to custody agreement regarding 1, pt going thru reclassification regarding security clearance for a new job with possible station in another state. Pt has been in the 11yrs doing the same job and has a history of 3 combat deployments. He is followed by [facility] stated recently and started taking zoloft 25mg 4days ago. Pt appeared anxious and depressed in the ED. Endorsed PTSD symptoms of hypervigilance, paranoia, insomnia, nightmares, irritability. CONSULTANTS INVOLVED: None TREATMENT AND PROGRESS ON THE UNIT : Patient was extremely depressed, he had flat affect, psychomotor retardation, suicidal ideation, poor attention/concentration, guilty feelings, sleep problems, poor appetite. 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 He fulfilled criteria for major depression, anxiety and PTSD. He was started on Abilify (2.5 mgs PO QHS) as an antidepressant booster and his antidepressant (Zoloft)was increased, slowly to 150 mgs po daily, Prazosin 3 mgs PO QHS for nightmares and flashbacks, Mirtazapine 45 mgs. PO QHS for insomnia and Hydroxyzine 25 mgs PO q6h prn for anxiety/agitation. The patient had a good response to medications, he stopped reporting suicidal thoughts but the depression persisted and although he reported improvement of his depression, he was still very depressed and anxious. He needed to go to longer treatment and he was accepted at [facility] in [place]. He was still depressed, his affect was still constricted/flat, he was guarded, his speech was impoverished and had poor eye contact at the time of his discharge. HOSPITAL COURSE: As above DISCHARGE ASSESSMENT: Patient was not suicidal,not homicidal and not psychotic at the time of his discharge but he was still depressed and in need of longer treatment for stabilization MENTAL STATUS EXAMINATION ON DISCHARGE: General Appearance: well groomed, getting ready to leave the Unit ( he is leaving on a pass today, he has to pack before going to [place] in [place] tomorrow) Build: average Demeanor: withdrawn, calm, sad Eye Contact: avoidant Activity: calm,he has psychomotor retardation Behavior: cooperative, indifferent, withdrawn, apathetic Speech: clear, low volume, slow, non-spontaneous, not fluent Mood: depressed, anxious Mood "I don't have suicidal thoughts, I feel a little bit better" Affect: constricted, flat, congruent, anxious Thought Process: logical/linear, depressed, intact Thought Content (Delusions): none reported, denies SI, HI, AVH Thought Content (Other): guarded, appropriate Thought Content (Aggressive): none reported Perception (Hallucinations): none reported Perception (Other): none reported Cognition (Impairment of): none reported Cognition(Intelligence Est.): average Oriented: Awake, Alert, Oriented times three Insight: fair Judgment: Fair Psychosis: Denies MEDICATIONS ON DISCHARGE: Scheduled Aripiprazole (Aripiprazole) 5 Mg Tab, 2.5 MG PO QHS for MOOD, #7 Mirtazapine (Mirtazapine) 15 Mg Tab, 45 MG PO QHS for INSOMNIA, #21 Nicotine (Nicotine Transdermal Syst) 21 Mg/24 Hr Dis, 1 PATCH TD DAILY for NICOTINE WITHDRAWALS, #7 Prazosin HCl (Minipress) 1 Mg Cap, 3 MG PO QHS for NIGHTMARES, #21 Sertraline Hcl (Sertraline HCl) 50 Mg Tab, 150 MG PO DAILY for DEPRESSION, #21 Scheduled PRN Hydroxyzine HCl (Hydroxyzine HCl) 25 Mg Tab, 25 MG PO Q6HP PRN for ANXIETY, #28 PLAN/FOLLOWUP ARRANGEMENTS: * Mental Health Appt 1 * Medical Follow Up [facility] * Additional information Pt to transfer to [facility], no appointments necessary The amount of time spent in the coordination of care for this patient was approximately 30 minutes. Vital Signs/I&Os Vital Signs Date Time Temp Pulse Resp B/P (MAP) Pulse Ox O2 Delivery O2 Flow Rate FiO2 12/11/18 22:23 128/76 12/11/18 18:23 98.3 84 16 Medications Scheduled Aripiprazole (Aripiprazole) 5 Mg Tab, 2.5 MG PO QHS for MOOD, #7 Mirtazapine (Mirtazapine) 15 Mg Tab, 45 MG PO QHS for INSOMNIA, #21 Nicotine (Nicotine Transdermal Syst) 21 Mg/24 Hr Dis, 1 PATCH TD DAILY for NICOTINE WITHDRAWALS, #7 Prazosin HCl (Minipress) 1 Mg Cap, 3 MG PO QHS for NIGHTMARES, #21 Sertraline Hcl (Sertraline HCl) 50 Mg Tab, 150 MG PO DAILY for DEPRESSION, #21 Scheduled PRN Hydroxyzine HCl (Hydroxyzine HCl) 25 Mg Tab, 25 MG PO Q6HP PRN for ANXIETY, #28 Allergies Coded Allergies: No Known Allergies (Unverified , 03/21/17) DYANA PARK MD Dec 16, 2018 21:15
== END 2018-12-12 06:21 | DRG 881 ==
LOC: M ED 04:01 → M ED INP 14:27 → M PSY 16:31
PROVIDERS: ADMIT Psychiatry & Neurology Psychiatry; ATTEND Psychiatry & Neurology Psychiatry
DX: F32.9 Major depressive disorder, single episode, unspecified (principal); R45.851 Suicidal ideations; F43.10 Post-traumatic stress disorder, unspecified; Z79.899 Other long term (current) drug therapy; F17.200 Nicotine dependence, unspecified, uncomplicated; E87.6 Hypokalemia

== ENCOUNTER 2019-05-15 22:37 | Emergency (ER) | payer OTHER ==
[~2019-05-15] VITALS: Ht 180.3 cm; Wt 65.9 kg
[~2019-05-15 22:37] MED LIST changes: +AMBI5TAB PO; +ARIP1TAB6 PO; +DOXE10CA PO; +ESCI10TA2 PO; +HYDR-3363 PO; +LEXA1TAB PO; +MINI1CAP PO; +MIRT15TA3 PO; +MIRT1TAB15 PO; +NICO21DI37 TD; +NICO21PAT TD; +PRAZ2CAP PO; +REME15TA PO; +SERT-141 PO; +SERT25TA88 PO; +TRAZ-252 PO; +TRAZ1TAB10 PO
[2019-05-15] MEDS ORDERED: AMBI5TAB PO (22:44)
[2019-05-16 00:32] VITALS: BP 119/80
--- NOTE | 2019-05-16 00:43 | REP ---
Clinical: Trauma. Technique: AP, lateral, bilateral oblique views left foot. Findings: The osseous structures and joint spaces are intact and normal. There is no evidence for acute fracture or dislocation. Surrounding soft tissues are unremarkable. No subcutaneous emphysema or radiodense foreign body. Impression: No acute fracture or dislocation. Electronically Signed by Easton Patino MD 05/16/2019 12:34 A
== END 2019-05-16 00:34 | disposition home or self-care (01) ==
LOC: M ED 22:37
DX: S90.32XA Contusion of left foot, initial encounter (principal); Y30.XXXA Falling, jumping or pushed from a high place, undetermined intent, initial encounter; Y92.89 Other specified places as the place of occurrence of the external cause; F17.200 Nicotine dependence, unspecified, uncomplicated; Z79.899 Other long term (current) drug therapy